=== PATIENT | female | born 1980 | race Caucasian/White ===

== ENCOUNTER 2020-08-18 12:39 | Emergency (ER) | payer SELFPAY ==
[2020-08-18] MEDS ORDERED: SODIUM CHLORIDE 0.9% (FLUSH) 10 ML SYG IV PRN (13:03)
--- NOTE | 2020-08-18 13:37 | ED.PDOC ---
History of Present Illness - General Chief Complaint: General Stated Complaint: headache, ear pain, sorethroat Time Seen by Provider: 08/18/20 13:02 Source: patient, RN notes reviewed, Vital Signs reviewed Exam Limitations: no limitations - History of Present Illness Initial Comments: Patient is a 40-year-old white female who is morbidly obese who presents with 2 days of right ear pain, chest pressure, shortness of breath. There is no radiation of the pain. There is no exertional component to the chest pressure or pain. Patient denies any nausea or vomiting. She has had diarrhea for the last few days. Timing/Duration: other - 2 days Severity: mild Improving Factors: nothing Worsening Factors: nothing Associated Symptoms: shortness of breath Allergies/Adverse Reactions: Allergies Terbutaline Allergy (Verified 08/18/20 13:00) Home Medications: Ambulatory Orders Acetaminophen W/ Codeine [Tylenol W/ CODEINE #3] 1 ea PO Q4H PRN #20 12/28/19 Ciprofloxacin [Cipro] 500 mg PO BID #10 tab 12/28/19 Esomeprazole Magnesium [Nexium] 40 mg PO DAILY #30 cap 12/28/19 Ibuprofen 800 mg PO BID 12/28/19 Ondansetron HCl [Zofran] 4 mg PO Q4HR PRN #12 tab 12/28/19 Phenazopyridine HCl [Pyridium] 200 mg PO TID #9 tab 12/28/19 Tamsulosin HCl [Flomax] 0.4 mg PO DAILY #7 cap 12/28/19 Ondansetron [Ondansetron Odt] 4 mg PO Q6H #12 tab 08/18/20 Review of Systems - Review of Systems Constitutional: States: no symptoms reported, see HPI. Denies: chills, fever, malaise, weakness EENTM: States: no symptoms reported. Denies: eye pain, blurred vision, double vision Respiratory: States: see HPI, short of breath. Denies: cough, wheezing Cardiology: States: see HPI, chest pain - chest pressure. Denies: edema, palpitations Gastrointestinal/Abdominal: States: see HPI, diarrhea. Denies: abdominal pain, nausea, vomiting Genitourinary: States: no symptoms reported. Denies: dysuria, frequency Musculoskeletal: States: no symptoms reported. Denies: back pain, joint pain, neck pain Skin: States: no symptoms reported. Denies: change in color, rash Neurological: States: no symptoms reported. Denies: headache, numbness, tingling, tremors, weakness Endocrine: States: no symptoms reported. Denies: increased hunger, increased thirst, increased urine Hematologic/Lymphatic: States: no symptoms reported. Denies: blood clots, easy bleeding All other Systems: Reviewed and Negative Past Medical History (General) - Patient Medical History Hx Seizures: No Hx Stroke: No Hx Dementia: No Hx Asthma: No Hx of COPD: No Hx Cardiac Disorders: No Hx Congestive Heart Failure: No Hx Pacemaker: No Hx Hypertension: No Hx Thyroid Disease: No Hx Diabetes: No Hx Gastroesophageal Reflux: No Hx Renal Disease: No Hx Cancer: No Hx of HIV: No Hx Hepatitis C: No Hx MRSA: No Surgical History: other - Vaccination History Hx Tetanus, Diphtheria Vaccination: Yes Hx Influenza Vaccination: No Hx Pneumococcal Vaccination: No - Social History Hx Tobacco Use: Yes Hx Chewing Tobacco Use: No Hx Alcohol Use: Yes - twice a year Hx Substance Use: No Hx Substance Use Treatment: No Hx Depression: No Hx Physical Abuse: No Hx Emotional Abuse: No Hx Suspected Abuse: No - Female History Patient is a Female of Child Bearing Age (10 -59 yrs old): Yes Patient : No - Triage Comment ED Triage Comment: tubal ligation Family Medical History - Family History Mother Family History: Unknown Physical Exam - Physical Exam General Appearance: Alert, Anxious, Well Developed, Well Groomed, Well Hydrated, Well Nourished Eye Exam: bilateral normal Ears, Nose, Throat: hearing grossly normal, normal ENT inspection, normal pharynx Neck: non-tender, full range of motion, supple Respiratory: lungs clear, normal breath sounds, no respiratory distress, no accessory muscle use, other - TTP of anterior chest wall, worst at left lateral edge of sternum. Palpation reproduces the pain Cardiovascular/Chest: normal peripheral pulses, regular rate, rhythm, no edema, no gallop, no murmur Peripheral Pulses: radial,right: 2+, radial,left: 2+ Gastrointestinal/Abdominal: normal bowel sounds, non tender, soft, no organomegaly, no pulsatile mass Back Exam: normal inspection, no CVA tenderness, no vertebral tenderness Extremity: normal range of motion, non-tender, normal inspection, no pedal edema Neurologic: anglesmith II-XII nml as tested, no motor/sensory deficits, alert, normal mood/affect, oriented x 3 Skin Exam: normal color, warm/dry Lymphatic: no adenopathy Progress - Progress Progress: Differential diagnosis: Acute VT, viral URI, Covid, pneumonia among others. 08/18/20 15:55 Patient's lab work is unremarkable. Chest x-ray does not show pneumonia. Covid testing is negative. Influenza is negative. I suspect patient has a viral URI. Plan on discharge home with follow-up with PCP in 3 to 5 days. I will give patient a work note to keep her off work for the next day or 2. I discussed this plan of care with the patient she voices understanding and agreement. Jim Rivera M.D. #[id number] - Results/Orders Results/Orders: 08/18/20 13:03 Sodium Chloride 0.9% (Flush) [Saline Flush Syringe] 3 ml IV PRN PRN 08/18/20 13:10 STREP A SCREEN CULTURE Stat 08/18/20 13:15 EKG STAT Laboratory Results - last 24 hr 08/18/20 08/18/20 13:10 13:25 WBC 7.6 RBC 4.40 Hgb 13.3 Hct 38.5 MCV 87.5 MCH 30.3 MCHC 34.6 RDW 13.2 Plt Count 313 MPV 8.4 Absolute Neuts (auto) 4.70 Absolute Lymphs (auto) 2.40 Absolute Monos (auto) 0.50 Absolute Eos (auto) 0.10 Absolute Basos (auto) 0.00 Neutrophils % 61.6 Lymphocytes % 31.0 Monocytes % 6.1 Eosinophils % 0.7 L Basophils % 0.6 PT 9.4 INR < 1.00 PTT (SP) 23.6 Sodium 139 Potassium 3.7 Chloride 106 Carbon Dioxide 25 Anion Gap 11.7 L BUN 14 Creatinine 0.68 BUN/Creatinine Ratio 20.6 H Random Glucose 88 Serum Osmolality 277.4 Calcium 9.1 Magnesium 2.0 Total Bilirubin 0.4 Direct Bilirubin 0.1 Indirect Bilirubin 0.3 AST 26 ALT 41 Alkaline Phosphatase 82 Creatine Kinase 65 CK-MB (CK-2) 1.2 CK-MB (CK-2) % Not Reportable Troponin I < 0.02 Serum Total Protein 7.7 Albumin 4.2 Group A Strep Rapid Negative Covid 19: Negative Influenza A: Negative Influenza B: Negative EKG performed 18 August 2020 at 1311 hrs.: Normal sinus rhythm at 66 bpm, left axis deviation, no ST or T wave changes, abnormal EKG. No comparison EKG available at this time. EXAM: Chest,1 View INDICATION: 40 years Female, chest pressure COMPARISON: Single view of the chest 12/27/2019 FINDINGS: Single view of the chest was performed. Heart size is stable at the upper limits of normal. No pulmonary infiltrate or pleural effusion. No pneumothorax. The osseous structures are intact. Unremarkable appearance of the visualized upper abdomen. IMPRESSION: 1. Heart size is stable at the upper limits of normal. 2. No evidence for acute cardiopulmonary process. Electronically signed by: Oneyda Herrera MD 08/18/2020 2:09 PM Vital Signs 08/18/20 08/18/20 12:39 12:40 Temperature 97.6 F Pulse Rate [ 74 73 pulse ox] Respiratory 20 16 Rate Blood Pressure 132/96 125/85 [right forearm] O2 Sat by Pulse 97 97 Oximetry Departure - Departure Clinical Impression: Viral upper respiratory tract infection with cough, Costochondral chest pain Time of Disposition: 15:59 Disposition: Discharge to Home or Self Care Condition: Good Departure Forms: ED Discharge - Pt. Copy, Patient Portal Self Enrollment Instructions: Viral Upper Respiratory Infection, Adult (DC), Costochondritis (DC), Chest Pain (DC) Diet: resume usual diet Activity: increase activity as tolerated Referrals: WISAM ACOSTA [Primary Care Provider] - 1-5 Days Prescriptions: Ondansetron [Ondansetron Odt] 4 mg PO Q6H #12 tab Home Medications: Ambulatory Orders Acetaminophen W/ Codeine [Tylenol W/ CODEINE #3] 1 ea PO Q4H PRN #20 12/28/19 Ciprofloxacin [Cipro] 500 mg PO BID #10 tab 12/28/19 Esomeprazole Magnesium [Nexium] 40 mg PO DAILY #30 cap 12/28/19 Ibuprofen 800 mg PO BID 12/28/19 Ondansetron HCl [Zofran] 4 mg PO Q4HR PRN #12 tab 12/28/19 Phenazopyridine HCl [Pyridium] 200 mg PO TID #9 tab 12/28/19 Tamsulosin HCl [Flomax] 0.4 mg PO DAILY #7 cap 12/28/19 Ondansetron [Ondansetron Odt] 4 mg PO Q6H #12 tab 08/18/20
--- NOTE | 2020-08-18 14:11 | RAD ---
EXAM: Chest,1 View INDICATION: 40 years Female, chest pressure COMPARISON: Single view of the chest 12/27/2019 FINDINGS: Single view of the chest was performed. Heart size is stable at the upper limits of normal. No pulmonary infiltrate or pleural effusion. No pneumothorax. The osseous structures are intact. Unremarkable appearance of the visualized upper abdomen. IMPRESSION: 1. Heart size is stable at the upper limits of normal. 2. No evidence for acute cardiopulmonary process. Electronically signed by: Oneyda Herrera MD 08/18/2020 2:09 PM CDT
[2020-08-18 16:17] VITALS: BP 140/97; TEMP 98.4; O2SAT 96
== END 2020-08-18 16:22 | disposition home or self-care (01) ==
LOC: ER 12:39
DX: J06.9 Acute upper respiratory infection, unspecified (principal); R05 Cough; M94.0 Chondrocostal junction syndrome [Tietze]; E66.01 Morbid (severe) obesity due to excess calories; H92.01 Otalgia, right ear; Z79.899 Other long term (current) drug therapy; Z88.8 Allergy status to other drugs, medicaments and biological substances; F17.200 Nicotine dependence, unspecified, uncomplicated; Z20.828 Contact with and (suspected) exposure to other viral communicable diseases